=== PATIENT | male | born 1970 | race Caucasian/White ===

== ENCOUNTER 2017-01-23 21:37 | Emergency (ER) | payer BC ==
--- NOTE | 2017-01-23 21:38 | PDOC ---
History of Present Illness - General History Source: Patient Exam Limitations: No Limitations - History of Present Illness Initial Comments: 01/23/17 21:42 The patient is a 46 year old male, with a significant past medical history of GERD, who presents to the emergency department with right flank pain for about 30 mins. He reports having acute onset of right flank pain while sitting down. He reports having kidney stones in the past. He denies any recent fevers, chills , headache or dizziness. He denies any recent nausea, vomit, diarrhea or constipation. He denies any recent chest pain or shortness of breath. He denies any recent dysuria, frequency, urgency or hematuria. PAST MEDICAL HISTORY: See HPI PAST SURGICAL HISTORY: No significant history. FAMILY HISTORY: No pertinent history. SOCIAL HISTORY: Patient lives with family and is employed. MEDICATIONS: Reviewed. ALLERGIES: As per nursing notes. ROS General: No fevers or chills, no weakness, no weight loss HEENT: No change in vision. No sore throat. No ear pain CardioVascular: No chest pain or shortness of breath Respiratory:No cough, or wheezing. Gastrointestinal: No nausea, vomiting, diarrhea or constipation. No rectal bleeding Genitourinary: +Right flank pain. No dysuria, hematuria, or frequency Musculoskeletal: No joint or muscle pain or swelling Neurologic: No headache, vertigo, dizziness or loss of consciousness Psychiatric: No depression Skin: No rashes or easy bruising Endocrine: no increased thirst or abnormal weight change Allergic: no skin or latex allergy All other systems reviewed and normal Exam: General: Well-nourished well-developed individual, Moderate distress appears uncomfortable HEENT: Throat: Normal, tonsils normal, no erythema or exudate Neck: Supple, no meningeal signs, no lymphadenopathy Eyes: Pupils equal reactive and round, extraocular motion intact Chest: Nontender to palpation Cardiac: S1-S2 normal, regular rate and rhythm, no murmurs rubs or gallops Respiratory: Lungs clear to auscultation bilateral Abdomen: Soft, nondistended, normal bowel sounds, Right flank pain on palpation no CVA tenderness. Extremities: Warm, dry, no cyanosis, clubbing, or edema Skin: No rashes Neuro: Alert and oriented x3, nonfocal exam, grossly intact, normal gait Psych: Normal mood and affect <George Jackson - Last Filed: 01/23/17 21:42> - General History Source: Patient Exam Limitations: No Limitations - History of Present Illness Initial Comments: A portion of this note was documented by scribe services under my direction. I have reviewed the details of the note, within reason, and agree with the documentation. The case summary and management plan written by me. Assessment and plan: This is a 46-year-old male who comes in complaining of right flank pain. Patient had a CAT scan that does show a 2 mm stone at the UVJ. Otherwise there is a couple of stones in the kidneys. They put should and is able to tolerate by mouth medication and is drinking fluid in the emergency room. Patient discharged home will follow-up with a urologist this week. <Stevie Monte I - Last Filed: 01/24/17 01:56> - General Chief Complaint: Pain, Acute Stated Complaint: RIGHT FLANK PAIN X 1/2 HOUR Time Seen by Provider: 01/23/17 21:38 Past History <George Jackson - Last Filed: 01/23/17 21:42> <Stevie Monte I - Last Filed: 01/24/17 01:56> - Past Medical History Allergies/Adverse Reactions: Allergies Allergy/AdvReac Type Severity Reaction Status Date / Time No Known Allergies Allergy Verified 01/23/17 21:38 Home Medications: Ambulatory Orders Dexlansoprazole [Dexilant] 60 mg PO DAILY 01/23/17 Tamsulosin HCl [Flomax] 0.4 mg PO DAILY #30 cap.er.24h 01/23/17 Ondansetron [Zofran *Odt*] 8 mg SL TID #12 od.tablet 01/24/17 Oxycodone HCl/Acetaminophen [Percocet 5-325 mg Tablet] 1 - 2 tab PO Q4H #20 tablet MDD 8 01/24/17 ED Treatment Course - LABORATORY CBC & Chemistry Diagram: 01/23/17 22:40 01/23/17 22:40 <Stevie Monte I - Last Filed: 01/24/17 01:56> *DC/Admit/Observation/Transfer - Attestations Scribe Attestion: 01/23/17 21:42 Documentation prepared by George Jackson, acting as medical appointment scheduler for Stevie Monte MD. <RenettaGeorge - Last Filed: 01/23/17 21:42> - Discharge Dispostion Admit: No <Stevie Monte I - Last Filed: 01/24/17 01:56> Diagnosis at time of Disposition: Renal colic on right side - Discharge Dispostion Disposition: HOME Condition at time of disposition: Stable - Prescriptions Prescriptions: Tamsulosin HCl [Flomax] 0.4 mg PO DAILY #30 cap.er.24h Oxycodone HCl/Acetaminophen [Percocet 5-325 mg Tablet] 1 - 2 tab PO Q4H #20 tablet MDD 8 Ondansetron [Zofran *Odt*] 8 mg SL TID #12 od.tablet - Referrals Referrals: Geraldo Macedo MD [Staff Physician] - - Patient Instructions Additional Instructions: Your white blood cell count was elevated most likely secondary to the pain. However if you develop a fever it is important that you follow-up with your primary care doctor or return to the ER as you may need antibiotics. For the pain take Percocet one or 2 tablets every 4 hours if needed For nausea take Zofran 1 tablet as often as 3 times a day if needed to keep your urine flowing take Flomax 1 tablet a day. Strain your urine Return to the emergency department immediately with ANY new, persistent or worsening symptoms. Continue any medications as previously prescribed by your physician. You should follow up with your primary doctor as soon as possible regarding today's emergency department visit. . Please make sure your doctor reviews the results of your emergency evaluation. Thank you for coming to the Emergency Department today for your care. It was a pleasure to see you today. Please note that your evaluation is INCOMPLETE until you follow-up with your doctor.
[2017-01-23] MEDS ORDERED: SODIUM CHLORIDE 1,000 ML IV ONE ×2 (21:46→23:07)
[2017-01-23] MEDS ORDERED: ONDANSETRON 4 MG/2 ML VIAL IVPB ONE (21:46)
[2017-01-23] MEDS ORDERED: KETOROLAC TROMETHAMINE 30 MG/1 ML VIAL IVPUSH ONE (21:46)
[2017-01-23] MEDS ORDERED: morphine CARPU-JECT 2 MG/1 ML DISP.SYRIN IVPUSH ONE (21:46)
[2017-01-23 21:48] LABS: PH,URINE 5.5 (4.5-8); URINE APPEARANCE Clear; URINE BILIRUBIN Negative (NEGATIVE); URINE BLOOD Negative (NEGATIVE); URINE GLUCOSE (UA) Negative (NEGATIVE); URINE KETONE Negative (NEGATIVE); URINE LEUK ESTERASE Negative (NEGATIVE); URINE NITRITE Negative (NEGATIVE); URINE PROTEIN Negative (NEGATIVE); URINE UROBILINOGEN 0.2 E.U/dl (0.2-1.0)
[2017-01-23 21:49] LABS: URINE COLOR YELLOW
[2017-01-23 22:02] VITALS: TEMP 97.5; BMI 24.2
[2017-01-23 23:01] LABS: MEAN PLT VOLUME 9.9 fl (7.5-11.1)
[2017-01-23 23:06] LABS: MCH 32.2 pg (25.7-33.7); MCHC 33.7 g/dl (32.0-35.9); MEAN CELL VOLUME 95.5 fl (80-96); PLATELET COUNT 278 K/MM3 (134-434); WHITE BLOOD COUNT 17.3 K/mm3 (4.0-10.8)
[2017-01-23] MEDS ORDERED: ACETAMINOPHEN 1000 MG/100 ML VIAL (NON FORMULARY) IVPB ONE (23:06)
[2017-01-23 23:09] LABS: ALBUMIN 4.3 g/dl (3.5-5.0); ALK PHOS 55 U/L (32-92); ANION GAP 8 (8-16); BILIRUBIN,TOTAL 0.4 mg/dl (0.2-1.0); CALCIUM 9.2 mg/dl (8.4-10.2); CO2 31 mmol/L (22-28); GLUCOSE,RANDOM 111 mg/dl (74-106); SGOT/AST 22 U/L (10-42); SGPT/ALT 20 U/L (10-40); TOT PROT 6.6 g/dl (6.4-8.3)
[2017-01-23] MEDS ORDERED: OXYCODONE/APAP 5/325MG COMBO TABLET PO ONE (23:32)
[2017-01-23 23:57] LABS: PLATELET ESTIMATE ADEQUATE (NORMAL)
[2017-01-24 00:12] VITALS: BP 112/65; PULSE 62
== END 2017-01-24 00:15 | disposition home or self-care (01) ==
LOC: FER 21:37
PROC: 3E033NZ Introduction of Analgesics, Hypnotics, Sedatives into Peripheral Vein, Percutaneous Approach (ICD-10-PCS; principal; 2017-01-23)
PROC: 3E0333Z Introduction of Anti-inflammatory into Peripheral Vein, Percutaneous Approach (ICD-10-PCS; 2017-01-23)
PROC: 3E0337Z Introduction of Electrolytic and Water Balance Substance into Peripheral Vein, Percutaneous Approach (ICD-10-PCS; 2017-01-23)
DX: N23 Unspecified renal colic (principal); K21.9 Gastro-esophageal reflux disease without esophagitis; Z87.442 Personal history of urinary calculi
CPT/HCPCS: 36415; 74176-TC; 80053; 81003; 85027; 99281-25

== ENCOUNTER 2020-08-22 06:06 | Emergency (ER) | payer BC, OTHER ==
[2020-08-22] MEDS ORDERED: KETOROLAC TROMETHAMINE 30 MG/1 ML VIAL ONE (06:13)
[2020-08-22 06:26] VITALS: BMI 24.5
[2020-08-22] MEDS ORDERED: SODIUM CHLORIDE 1,000 ML IV ONE (06:55)
[2020-08-22] MEDS ORDERED: KETOROLAC TROMETHAMINE 30 MG/1 ML VIAL IVPUSH ONE ×2 (07:00→09:21)
[2020-08-22] MEDS ORDERED: ONDANSETRON 4 MG/2 ML VIAL IVPB ONE (07:00)
[2020-08-22] MEDS ORDERED: SODIUM CHLORIDE 1,000 ML IV SCH (07:30)
[2020-08-22 09:07] LABS: HEMATOCRIT 42.7 % (35.4-49); HEMOGLOBIN 14.4 GM/dl (11.7-16.9); MCH 31.8 pg (25.7-33.7); MCHC 33.6 g/dl (32.0-35.9); MEAN CELL VOLUME 94.6 fl (80-96); MEAN PLT VOLUME 9.5 fl (7.5-11.1); PLATELET COUNT 239 K/MM3 (134-434); RBC 4.51 M/mm3 (4.00-5.60); RDW 12.3 % (11.9-15.9)
[2020-08-22] MEDS ORDERED: TAMSULOSIN HCL 0.4 MG CAP PO ONE (09:15)
[2020-08-22] MEDS ORDERED: TAMSULOSIN HCL 0.4 MG CAP ONE (09:19)
[2020-08-22] MEDS ORDERED: KETOROLAC TROMETHAMINE 15 MG/ML VIAL ONE (09:20)
[2020-08-22 09:39] LABS: ALBUMIN 3.8 g/dl (3.4-5.0); BILIRUBIN,TOTAL 0.5 mg/dl (0.2-1); CALCIUM 8.9 mg/dl (8.5-10); CREATININE 1.2 mg/dl (0.55-1.3); POTASSIUM 3.9 mmol/L (3.5-5.1); TOT PROT 6.3 g/dl (6.4-8.2)
[2020-08-22] MEDS ORDERED: HYDROmorphone HCL CARPU-JECT 1 MG/1 ML DISP.SYRIN IVPUSH ONE (09:48)
[2020-08-22] MEDS ORDERED: HYDROmorphone HCL/PF 1 MG/ML VIAL ONE (09:50)
[2020-08-22 09:57] LABS: EPITHELIAL CELLS FEW /hpf
[2020-08-22 09:58] LABS: URINE AMORPHOUS SEDIMENT 1+
[2020-08-22 10:14] VITALS: BP 115/69; PULSE 65; TEMP 99
[2020-08-22 10:55] LABS: PLATELET ESTIMATE ADEQUATE
== END 2020-08-22 10:27 | disposition home or self-care (01) ==
LOC: FER 06:06
PROC: 3E0333Z Introduction of Anti-inflammatory into Peripheral Vein, Percutaneous Approach (ICD-10-PCS; principal; 2020-08-22)
PROC: 3E033NZ Introduction of Analgesics, Hypnotics, Sedatives into Peripheral Vein, Percutaneous Approach (ICD-10-PCS; 2020-08-22)
PROC: 3E033GC Introduction of Other Therapeutic Substance into Peripheral Vein, Percutaneous Approach (ICD-10-PCS; 2020-08-22)
DX: N23 Unspecified renal colic (principal); R10.9 Unspecified abdominal pain
CPT/HCPCS: 36415; 74176-TC; 80053; 81003; 81015; 85025; 99285-25